=== PATIENT | female | born 1985 | race Hispanic/Latino ===

== ENCOUNTER 2017-10-15 21:48 | Emergency (ER) | payer SELFPAY ==
[~2017-10-15] VITALS: Ht 162.6 cm; Wt 74.8 kg
[2017-10-15] MEDS ORDERED: PANTOPRAZOLE 40 MG 10ML VIAL IV STA (21:53)
[2017-10-15] MEDS ORDERED: ONDANSETRON HCL INJ 2 MG/ML VIAL IV STA (21:53)
[2017-10-15] MEDS ORDERED: DICYCLOMINE HCL 20 MG/2 ML VIAL IM ONE (22:00)
[2017-10-15] MEDS ORDERED: SODIUM CHLORIDE 0.9% 1000ML 1,000 ML IV ONE (22:00)
[2017-10-15 22:09] LABS: BASOPHILS % 0.3 % (0.0-1.0); EOSINOPHILS # (AUTO) 0.2 (0.0-0.4); EOSINOPHILS % 2.5 % (0.0-6.0); HEMATOCRIT 40.8 % (34.2-44.1); HEMOGLOBIN 14.2 g/dL (12.0-16.0); LYMPHOCYTES # (AUTO) 1.7 (1.0-3.2); LYMPHOCYTES % 17.9 % (18.0-39.1); MEAN CORPUSCULAR HEMOGLOBIN 31.7 pg (28-32); MEAN CORPUSCULAR HGB CONC 34.8 g/dL (31-35); MEAN CORPUSCULAR VOLUME 91.1 fL (81-99); MONOCYTES # (AUTO) 0.6 (0.2-0.8); MONOCYTES % 5.9 % (4.4-11.3); NEUTROPHILS # (AUTO) 6.9 (2.1-6.9); PLATELET COUNT 403 x10e3/uL (140-360); RED BLOOD COUNT 4.48 x10e6/uL (3.6-5.1); RED CELL DISTRIBUTION WIDTH 11.9 % (11.7-14.4)
[2017-10-15 22:28] LABS: ALANINE AMINOTRANSFERASE 52 IU/L (0-55); ALBUMIN 4.2 g/dL (3.5-5.0); ALBUMIN/GLOBULIN RATIO 1.1 (0.8-2.0); ALKALINE PHOSPHATASE 73 IU/L (40-150); AMYLASE 81 U/L (25-125); ANION GAP 16.4 mmol/L (8-16); BLOOD UREA NITROGEN 8 mg/dL (7-26); BUN/CREATININE RATIO 10 (6-25); CALCIUM 9.7 mg/dL (8.4-10.2); CARBON DIOXIDE 19 mmol/L (22-29); CHLORIDE 104 mmol/L (98-107); CREATININE, SERUM 0.79 mg/dL (0.57-1.11); EST GLOMERULAR FILTRATION RATE > 60 ML/MIN (60-); GLUCOSE 115 mg/dL (74-118); LIPASE 20 U/L (8-78); POTASSIUM 3.4 mmol/L (3.5-5.1); SODIUM 136 mmol/L (136-145)
--- NOTE | 2017-10-15 22:55 | Diagnostic Imaging Report ---
EXAM: US GALLBLADDER INDICATION: Right upper quadrant pain COMPARISON: None TECHNIQUE: Transverse and longitudinal sonographic images of the right upper abdomen were obtained. FINDINGS: LIVER: 16.4 cm in the right midclavicular line. Normal echogenicity, normal contour, no masses. Main Portal Vein: Normal size with hepatopetal flow. GALLBLADDER: Gallstones without wall thickening or pericholecystic fluid. Negative sonographic Krishnamurthy's sign. BILE DUCTS: No intra nor extra-hepatic dilation. Common bile duct measures 0.3 cm. PANCREAS: Visualized portions are normal. RIGHT KIDNEY: 10.2 cm in length Echogenicity: Normal Collecting System: No hydronephrosis Stones: None Cyst/Mass: None FREE FLUID: None in the right upper quadrant of the abdomen IMPRESSION: Cholelithiasis without sonographic evidence of acute cholecystitis. Signed by: Dr. Jazz Gasca M.D. on 10/15/2017 10:51 PM
[2017-10-16] MEDS ORDERED: MORPHINE SULFATE 2 MG/ML SYR IV STA (01:02)
[2017-10-16] MEDS ORDERED: ONDANSETRON HCL INJ 2 MG/ML VIAL IV STA (01:25)
== END 2017-10-16 03:20 | disposition home or self-care (01) ==
LOC: ER 21:48
DX: R10.11 Right upper quadrant pain (principal); R10.13 Epigastric pain; R11.2 Nausea with vomiting, unspecified; K80.70 Calculus of gallbladder and bile duct without cholecystitis without obstruction
CPT/HCPCS: 36415; 76705; 80053; 82150; 83690; 84702; 85025; 99284; J0500; J2270; J2405 ×2; J7030